=== PATIENT | male | born 1950 | race Caucasian/White ===

== ENCOUNTER 2018-10-08 20:47 | Observation (INO) ==
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
--- NOTE | 2018-10-08 21:47 | Diag Imaging Result Doc PS360 ---
EXAM: CT HEAD W/O CONTRAST HISTORY: altered mentation TECHNIQUE: CT head without contrast COMPARISON: None. FINDINGS: The lowest 1-2 cuts of the temporal lobes and cerebellum were not included. No parenchymal hemorrhage. No epidural or subdural hematoma. No subarachnoid hemorrhage. Mild microvascular ischemic changes. No mass identified on this noncontrasted exam. No hydrocephalus. No sinus opacification. Mild left posterior scalp soft tissue swelling. IMPRESSION: Mild microvascular ischemic changes. This exam was performed using automated exposure control, adjustment of mA or kV according to patient size, and/or use of iterative reconstruction technique. Electronically signed by Jimbo Arriaga 10/08/2018 9:45 PM
[2018-10-08 22:08] LABS: BASO# 0.03 X1000 (0.0-0.2); BASO% 0.7 % (0.0-0.8); EOS# 0.22 X1000 (0.0-0.7); EOS% 5.1 % (0.0-10.0); HEMATOCRIT 28.6 % (42.0-52.0); HEMOGLOBIN 9.8 g/dL (14.0-18.0); IMM GRAN# 0.01 X1000 (0.0-0.04); IMM GRAN% 0.2 % (0.0-0.5); LYMPH% 16.2 % (20.5-51.1); MCH 28.7 PG (27-31); MCHC 34.3 g/dL (33-37); MCV 83.6 FL (81-99); MONO# 0.45 X1000 (0.11-0.59); MONO% 10.4 % (1.7-9.3); MPV 7.7 FL (7.4-10.4); NEUT# 2.91 X1000 (1.4-6.5); NEUT% 67.4 % (42.2-75.2); PLT 185 X1000 (130-400); RBC 3.42 XMIL (4.7-6.1); RDW 16.7 % (11.5-14.5); WBC 4.32 X1000 (4.8-10.8)
[2018-10-08 22:34] LABS: AGAP 12; ALBUMIN 4.2 g/dL (3.5-5.0); ALKALINE PHOSPHATASE 86 U/L (32-122); BUN 12 mg/dL (8-22); CALCIUM 9.2 mg/dL (8.8-10.2); CHLORIDE 96 mmol/L (98-107); COSMO 264; CREATININE 1.1 mg/dL (0.7-1.2); ESTIMATED GFR > 60; GLUCOSE 98 mg/dL (70-104); GOT 39 U/L (10-34); GPT 29 U/L (10-44); SODIUM 132 mmol/L (136-145); TCO2 24 mmol/L (25-35); TOTAL PROTEIN 7.9 g/dL (6.3-8.3)
[2018-10-09 00:06] LABS: UR AMPHETAMINES QUAL NONE DETECTED (NONE DETECT); UR BARBITUATES QUAL NONE DETECTED (NONE DETECT); UR BENZODIAZEPIN QUAL NONE DETECTED (NONE DETECT); UR CANNABINOIDS QUAL NONE DETECTED (NONE DETECT); UR COCAINE QUAL NONE DETECTED (NONE DETECT); UR METHADONE QUAL NONE DETECTED (NONE DETECT); UR METHAMPHETAMINE QUAL NONE DETECTED (NONE DETECT); UR OPIATES QUAL NONE DETECTED (NONE DETECT); UR OXYCODONE QUAL NONE DETECTED (NONE DETECT); UR PCP QUAL NONE DETECTED (NONE DETECT); UR PROPOXYPHENE QUAL NONE DETECTED (NONE DETECT); UR TCA QUAL NONE DETECTED (NONE DETECT)
[2018-10-09] MEDS ORDERED: BOOSTRIX VACCINE IM ONE (00:29)
[2018-10-09 01:32] LABS: BILIRUBIN URINE NEGATIVE (NEGATIVE); BLOOD URINE NEGATIVE (NEGATIVE); CLARITY CLEAR (CLEAR); COLOR YELLOW; GLUCOSE URINE NEGATIVE (NEGATIVE); KETONE URINE TRACE mg/dL (NEGATIVE); LEUKOCYTES URINE TRACE (NEGATIVE); NITRITE URINE NEGATIVE (NEGATIVE); PROTEIN URINE TRACE mg/dL (NEGATIVE); UROBILINOGEN URINE NORMAL
[2018-10-09 01:35] LABS: URINE BACTERIA 2+ /HFP; URINE CRYSTAL NONE SEEN /HPF; URINE EPITHELIAL CELLS <10 /HPF (<10); URINE RBC <10 /HPF (<10); URINE SOURCE CLEAN CATCH; URINE WBC <10 /HPF (<10); URINE YEAST NONE SEEN /HPF
[2018-10-09] MEDS ORDERED: PNEUMOVAX 23 IM ONE (05:08)
[2018-10-09] MEDS ORDERED: NS 1,000 ML IV PRN (09:17)
[2018-10-09] MEDS ORDERED: ZOFRAN IV PRN ×2 (09:17→19:03)
[2018-10-09] MEDS ORDERED: TYLENOL PO PRN ×2 (09:17→19:03)
[2018-10-09 10:10] LABS: HEMOGLOBIN A1C 4.2 % (4.8-6.0)
[2018-10-09 10:11] LABS: BASO# 0.03 X1000 (0.0-0.2); BASO% 0.7 % (0.0-0.8); EOS# 0.37 X1000 (0.0-0.7); EOS% 8.3 % (0.0-10.0); HEMATOCRIT 28.4 % (42.0-52.0); HEMOGLOBIN 9.5 g/dL (14.0-18.0); LYMPH# 1.36 X1000 (1.2-3.4); LYMPH% 30.5 % (20.5-51.1); MCH 28.3 PG (27-31); MCHC 33.5 g/dL (33-37); MCV 84.5 FL (81-99); MONO# 0.57 X1000 (0.11-0.59); MONO% 12.8 % (1.7-9.3); MPV 8.2 FL (7.4-10.4); NEUT# 2.13 X1000 (1.4-6.5); NEUT% 47.7 % (42.2-75.2); PLT 197 X1000 (130-400); RBC 3.36 XMIL (4.7-6.1); RDW 16.6 % (11.5-14.5); WBC 4.46 X1000 (4.8-10.8)
[2018-10-09 10:12] LABS: AGAP 11; ALBUMIN 3.9 g/dL (3.5-5.0); ALKALINE PHOSPHATASE 85 U/L (32-122); BUN 11 mg/dL (8-22); CALCIUM 9.2 mg/dL (8.8-10.2); CHLORIDE 97 mmol/L (98-107); CK PROFILE 146 U/L (24-204); COSMO 263; CREATININE 0.9 mg/dL (0.7-1.2); ESTIMATED GFR > 60; GLUCOSE 76 mg/dL (70-104); GOT 37 U/L (10-34); GPT 28 U/L (10-44); IRON SATURATION 24 %; MAGNESIUM 1.9 mg/dL (1.5-2.7); POTASSIUM 4.1 mmol/L (3.5-5.1); SODIUM 132 mmol/L (136-145); TCO2 24 mmol/L (25-35); TIBC 225 ug/dL; TOTAL IRON 55 ug/dL (53-167); TOTAL PROTEIN 7.6 g/dL (6.3-8.3); UNBOUND IRON 170 ug/dL (112-346)
[2018-10-09 10:14] LABS: INR 1.05; PROTIME 14.2 Seconds (11.0-16.0)
--- NOTE | 2018-10-09 13:02 | Diag Imaging Result Doc PS360 ---
EXAM: MRA BRAIN W/O CONTRAST HISTORY: cva symptoms TECHNIQUE: MR angiography of the [place]. MIP images obtained. COMPARISON: None. FINDINGS: There is normal flow within each distal internal carotid artery. Normal filling of the anterior and middle cerebral arteries bilaterally. No occlusion or stenosis. Normal flow in the distal basilar artery with filling of each posterior cerebral artery. No occlusion or stenosis. No aneurysm. IMPRESSION: Normal MR angiography of the [place]. Electronically signed by Jimbo Arriaga 10/09/2018 12:59 PM
--- NOTE | 2018-10-09 13:04 | Diag Imaging Result Doc PS360 ---
EXAM: MRA NECK W/O CONT HISTORY: cva symptoms TECHNIQUE: MR angiography of the neck. MIP images obtained. COMPARISON: None. FINDINGS: Normal flow in the right common carotid artery. No occlusion or stenosis. Normal flow within the right internal carotid artery. No stenosis. Normal flow in the left common carotid artery and internal carotid artery. No occlusion or stenosis. There is normal flow within each vertebral artery. IMPRESSION: No occlusion or stenosis within either common carotid artery or within either internal carotid artery. Electronically signed by Jimbo Arriaga 10/09/2018 1:01 PM
--- NOTE | 2018-10-09 13:11 | Diag Imaging Result Doc PS360 ---
EXAM: MRI BRAIN W/WO CONTRAST HISTORY: cva symptoms TECHNIQUE: MRI brain with and without contrast. Axial, sagittal, and coronal images obtained in multiple sequences. These are followed by postcontrast axial and coronal images. COMPARISON: CT from 10/08/2018 FINDINGS: No recent infarct. There are minimal microvascular ischemic changes. No mass or midline shift. No enhancing lesion on the post contrasted images. No hydrocephalus. No epidural or subdural fluid collection. Normal orbits. Minimal sinusitis mucosal thickening. IMPRESSION: Minimal microvascular ischemic changes, but no recent infarct. Electronically signed by Jimbo Arriaga 10/09/2018 1:09 PM
[2018-10-09] MEDS: HUMULIN R (PARKWAY) SUBQ SCH ×2 (13:12→18:26)
[2018-10-09 14:24] LABS: C REACTIVE PROT QUANT 1.38 mg/L (0.00-5.00)
[2018-10-09 14:31] LABS: FERRITIN 930 ng/mL (30-400)
[2018-10-09] MEDS: NS 1,000 ML IV SCH ×3 (14:53→19:42)
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
[2018-10-09] MEDS ORDERED: KEPPRA 750 MG in NS 100 ML IV ONE (15:00)
--- NOTE | 2018-10-09 15:02 | Diag Imaging Result Doc PS360 ---
EXAM: TRAUMA SHOULDER RIGHT HISTORY: fell on right shoulder TECHNIQUE: Right shoulder, three views including an axillary Y-view. COMPARISON: None. FINDINGS: No fracture. No dislocation. Prominent bone spurring and joint space narrowing to the common clavicular joint. Bone spurs could be impinging upon the supraspinatus. IMPRESSION: Acromioclavicular arthritis. Electronically signed by Jimbo Arriaga 10/09/2018 3:00 PM
[2018-10-09] MEDS ORDERED: ATIVAN IV PRN ×2 (15:25→18:53)
--- NOTE | 2018-10-09 19:29 | EEG REPORT ---
DATE: 10/09/2018 COMMENT: This is a digitally recorded EEG on a 67-year-old patient with recent witnessed generalized seizure, reported change in behavior over several days, persistent confusion. FINDINGS: Most of the record is recorded in drowsing and sleep with symmetric features including sleep spindles. Brief portions of waking EEG show polymorphic and rhythmic theta frequencies across the hemispheres symmetrically. Sustained posterior dominant rhythm was not identified. Photic stimulation did not significantly alter the record. Hyperventilation was not done. No definite epileptiform discharge was identified. INTERPRETATION: Normal mostly sleep electroencephalogram. CORRELATION: There is not enough waking record to warrant interpretation. The absence of epileptiform discharges does not exclude a clinical diagnosis of seizures, but there is nothing on this record to suggest ongoing subclinical seizure as the reason for his apparent confusion and change in behavior. cc: MD William Garcia III, MD MTDMary
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
[2018-10-09] MEDS ORDERED: LIPITOR PO SCH (21:00)
[2018-10-09] MEDS: LIPITOR PO SCH (21:25)
[2018-10-09] MEDS: HUMULIN R SUBQ SCH (21:25)
[2018-10-10] MEDS ORDERED: KEPPRA 750 MG in NS 100 ML IV SCH (03:00)
[2018-10-10] MEDS: KEPPRA 750 MG in NS 100 ML IV SCH ×2 (03:44→14:58)
[2018-10-10 05:29] LABS: BASO# 0.02 X1000 (0.0-0.2); BASO% 0.5 % (0.0-0.8); EOS# 0.27 X1000 (0.0-0.7); EOS% 6.8 % (0.0-10.0); HEMATOCRIT 31.4 % (42.0-52.0); HEMOGLOBIN 10.5 g/dL (14.0-18.0); LYMPH# 1.28 X1000 (1.2-3.4); MCH 28.5 PG (27-31); MCHC 33.4 g/dL (33-37); MCV 85.3 FL (81-99); MONO# 0.39 X1000 (0.11-0.59); MONO% 9.8 % (1.7-9.3); MPV 8.3 FL (7.4-10.4); NEUT# 2.04 X1000 (1.4-6.5); NEUT% 50.9 % (42.2-75.2); PLT 174 X1000 (130-400); RBC 3.68 XMIL (4.7-6.1); RDW 17.2 % (11.5-14.5)
[2018-10-10 05:36] LABS: AGAP 13; ALB/GLOB RATIO 1.1; ALBUMIN 3.8 g/dL (3.5-5.0); ALKALINE PHOSPHATASE 81 U/L (32-122); BUN 11 mg/dL (8-22); CALCIUM 8.6 mg/dL (8.8-10.2); CHLORIDE 97 mmol/L (98-107); CK PROFILE 97 U/L (24-204); COSMO 265; CREATININE 0.9 mg/dL (0.7-1.2); ESTIMATED GFR > 60; GLUCOSE 78 mg/dL (70-104); GOT 33 U/L (10-34); GPT 25 U/L (10-44); MAGNESIUM 1.9 mg/dL (1.5-2.7); POTASSIUM 3.9 mmol/L (3.5-5.1); SODIUM 133 mmol/L (136-145); TCO2 23 mmol/L (25-35); TOTAL BILIRUBIN 0.66 mg/dL (0.20-1.00); TOTAL PROTEIN 7.2 g/dL (6.3-8.3)
[2018-10-10] MEDS: PRILOSEC PO SCH (06:31)
[2018-10-10] MEDS: NS 1,000 ML IV SCH ×2 (06:34→17:48)
[2018-10-10] MEDS ORDERED: PRILOSEC PO SCH (07:00)
[2018-10-10] MEDS: HUMULIN R SUBQ SCH ×4 (07:40→21:14)
[2018-10-10] MEDS ORDERED: HYDROCHLOROTHIAZIDE PO SCH (09:00)
[2018-10-10] MEDS ORDERED: PRINIVIL PO SCH ×2 (09:00)
[2018-10-10] MEDS ORDERED: THERA M PLUS PO SCH (09:00)
[2018-10-10] MEDS: THERA M PLUS PO SCH (09:07)
[2018-10-10] MEDS: PATIENT'S OWN MED PO SCH (09:07)
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
--- NOTE | 2018-10-10 11:00 | EKG Report ---
Test Performed on : 10/09/2018 10:38:06 AM Test Reason : evaluate rythm Blood Pressure : / mmHG Vent. Rate : 059 BPM Atrial Rate : 059 BPM P-R Int : 194 ms QRS Dur : 108 ms QT Int : 428 ms P-R-T Axes : 070 044 068 degrees QTc Int : 423 ms Sinus bradycardia. Otherwise normal ECG When compared with ECG of 12-DEC-2011 13:29, Vent. rate has decreased BY 37 BPM Confirmed by Misbah Andres MD ([id number]) on 10/10/2018 9:36:54 PM
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
--- NOTE | 2018-10-10 14:42 | ECHO REPORT ---
ORDER DATE: 10/09/2018 INDICATIONS: CVA, headache, dizziness, fall, confusion. FINDINGS: 1. Right atrium appears normal in size 3.4 cm. 2. Mild tricuspid regurgitation, RV systolic pressure of 42. 3. Normal RV size and systolic function. 4. No significant pulmonic insufficiency. 5. Normal left atrial size at 3.7 cm. 6. No mitral valve prolapse. Mild mitral regurgitation. 7. Normal LV size, end-diastolic dimension of 4.8 cm. Mild left ventricular hypertrophy with posterior and i interventricular septal wall thickness of 1.2 cm each. Normal LV systolic function. Calculated ejection fraction of 63% with normal wall motion. 8. The aortic valve opens well, it is trileaflet. Trace insufficiency. No stenosis. 9. The aorta appears normal in visualized segments. 10.There is a small predominantly anterior pericardial effusion with no evidence of tamponade physiology. cc: MD Jamaica Lopez CRNP
--- NOTE | 2018-10-10 15:09 | OPERATIVE NOTE ---
PROCEDURE DATE: 10/10/2018 Lumbar puncture was done at the L4 space. Opening pressure was 28 cm of CSF. Clear fluid was obtained, and sent to the lab for flow cytometry in addition to usual studies. He tolerated this well. Closing pressure was 10 cm. cc: Loy Jackson III, MD
[2018-10-10 17:51] LABS: FLOW CYTOMETERY SOURCE CSF; LEUKEMIA LYMPHOMA BY FLOW REFERRED FOR TESTING
[2018-10-10 18:14] LABS: APPEARANCE CLEAR
[2018-10-10 18:33] LABS: RBC BF 105 /cumm; WBC BF 0 /cumm
[2018-10-10 19:51] LABS: GLUCOSE CSF 60 mg/dL (39-75); PROTEIN CSF 32.3 mg/dL (15-45)
[2018-10-10] MEDS: LIPITOR PO SCH (21:14)
[2018-10-11] MEDS: NS 1,000 ML IV SCH ×2 (01:21→10:16)
[2018-10-11] MEDS: KEPPRA 750 MG in NS 100 ML IV SCH (02:48)
[2018-10-11] MEDS: PRILOSEC PO SCH (06:08)
[2018-10-11] MEDS: HUMULIN R SUBQ SCH ×2 (06:09→11:06)
[2018-10-11] MEDS: PATIENT'S OWN MED PO SCH (08:14)
[2018-10-11] MEDS: THERA M PLUS PO SCH (08:14)
--- NOTE | 2018-10-11 08:41 | PROGRESS NOTE ---
DATE: 10/11/2018 SUBJECTIVE: Mr. Carlson feels much better. He is asking to go home. No complaints. OBJECTIVE: General: He is alert and oriented x3. Vital Signs: Temp 98.8 degrees, pulse 68, respirations 19, blood pressure 144/76. HEENT: Pupils are equal and round. Lungs: Clear in all lung geller. Cardiovascular: Regular rhythm and rate without murmur or S3. Abdomen: Soft. Skin: Warm and dry. Urine output is 5000 mL. Blood sugars 78, 109, 77. He had a lumbar puncture yesterday. Opening pressure was 28 cm of pressure, and these will be sent for flow cytometry. Closing pressure was 10 cm. ASSESSMENT AND PLAN: 1. He has improved mentally. I do not have a good explanation for his recent seizure. I have a spinal tap. Will look and see what the studies show. He feels much better. He might have had a seizure just immediately following the trauma, but not sure that that is what occurred. Also possible that he has had multiple seizures to account for this recent behavior pattern. Unremarkable MRI. Electroencephalogram did not show any definite epileptiform discharge. He feels much better and is asking to go home. I guess we need to make a decision on whether he will be on long-term seizure medications. 2. Chronic myeloid leukemia. Continue his current management. His blood counts look good and stable. 3. Hypertension. 4. Diabetes mellitus type 2. 5. Right shoulder pain, which is improved. Suspect that was musculoskeletal. 6. Review of his lab from yesterday, again unremarkable. Blood sugars have been well controlled, 107, 109, 101, 77. REVIEW OF ORDERS: Right now, he is on Keppra 750 mg IV every 12 hours, and decide whether to change that to p.o., and see when he is ready for discharge. His fluids have been going at normal saline 125 mL an hour, Lipitor 40 mg a day, Prilosec 40 mg a day. cc: Franck Casanova MD
--- NOTE | 2018-10-11 11:19 | PROGRESS NOTE ---
DATE: 10/11/2018 LOCATION: ICU bed #1. Mr. Carlson is sitting up at the bedside, awake and alert, appropriate, attentive, spontaneous with conversation. He recalls events of the last few days with accurate details. He still does not have clear memory of events several days ago. He reports no headache today, and no significant back pain following LP yesterday. CSF reports are unremarkable so far. Flow cytometry report is pending. I do not have any new suggestion from Neurology standpoint. I am okay with planned discharge. I would continue levetiracetam at current dose, and consider stopping that in 3 to 6 months if he continues seizure-free, depending on his clinical course and results of other workup. I discussed the [place] Law as it pertains to driving with him, and he reports he understands his responsibility. Thank you for asking Neurology to see Mr. Carlson. I will be glad to see him as an outpatient, if needed. cc: MD JOYCE Garcia III
[2018-10-11 12:03] VITALS: BP 141/70
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
[2018-10-12 12:41] LABS: VDRL CSF SEE COMMENTS
== END 2018-10-11 14:55 | disposition home or self-care (01) ==
LOC: P.MEDSURG 20:47 → P.ED 20:47 → SUATTDRO 10-09 04:24 → ICU 10-09 18:02
PROVIDERS: ATTEND Emergency Medicine
CPT/HCPCS: 70450; 70544; 70547; 70553; 73030; 80053; 80061; 80104; 80301; 80305; 80307; 80320; 81001; 82055; 82550; 82607; 82728; 82746; 82945; 82948; 83036; 83540; 83550; 83605; 83721; 83735; 84157; 84439; 84443; 84484; 85025; 85610; 85730; 86140; 86403; 86592; 87088; 87496; 87529; 87532; 87653; 87798; 88184; 88185; 89050; 90471; 90715; 90732; 93005; 93010; 93306; 93880; 94799; 95816; 99285; A9270; A9579; G0431; G0434; G0477; G0480; G6040; J1953; J7030; XXXXX